=== PATIENT | female | born 1970 | race Caucasian/White ===

== ENCOUNTER → 2020-11-22 09:56 | Outpatient (BNVA) | payer BC, OTHER, SELFPAY | PROVIDERS: Visit Provider Internal Medicine | DX: M45.9 Ankylosing spondylitis of unspecified sites in spine (principal); Z11.59 Encounter for screening for other viral diseases; Z11.1 Encounter for screening for respiratory tuberculosis | CPT/HCPCS: 99203; 99204 ==

== ENCOUNTER 2020-11-22 11:38 | Outpatient (CLI) | payer BC, OTHER, SELFPAY ==
--- NOTE | 2020-11-22 11:49 | XRR_ITS ---
PROCEDURE INFORMATION: Exam: XR Left Hand Exam date and time: 11/22/2020 11:49 AM Age: 50 years old Clinical indication: Hand; Bilateral; Patient HX: Pain in unspecified joint; Additional info: M45.9 - ankylosing spondylitis of unspecified sites in spine TECHNIQUE: Imaging protocol: XR Left hand. Views: 3 or more views. COMPARISON: No relevant prior studies available. FINDINGS: Bones/joints: No fracture or other acute abnormalities are seen. Chronic degenerative changes are present especially in the triscaphe joint and 1st carpometacarpal joint with joint space narrowing, sclerosis and small osteophytes. Soft tissues: Normal. XR/XR hand LT 2V [id number] IMPRESSION: Chronic degenerative changes especially in the triscaphe and 1st carpometacarpal joints. No acute abnormalities.
--- NOTE | 2020-11-22 11:49 | XRR_ITS ---
PROCEDURE INFORMATION: Exam: XR Right Hand Exam date and time: 11/22/2020 11:49 AM Age: 50 years old Clinical indication: Hand; Bilateral; Patient HX: Pain in unspecified joint; Additional info: M45.9 - ankylosing spondylitis of unspecified sites in spine TECHNIQUE: Imaging protocol: XR Right hand. Views: 1 or 2 views. COMPARISON: No relevant prior studies available. FINDINGS: Bones/joints: Chronic degenerative changes are present especially in the triscaphe joint with narrowing sclerosis and small osteophytes. No fracture or other acute abnormalities are seen. No destructive or erosive bony changes are present. Soft tissues: Normal. 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 No acute abnormality.
--- NOTE | 2020-11-22 11:49 | XRR_ITS ---
PROCEDURE INFORMATION: Exam: XR Thoracic Spine Exam date and time: 11/22/2020 11:49 AM Age: 50 years old Clinical indication: Condition or disease; Spondylitis, ankylosing; Thoracic; Additional info: M45.9 - ankylosing spondylitis of unspecified sites in spine TECHNIQUE: Imaging protocol: XR of the thoracic spine. Views: 3 views. COMPARISON: CR XR cervical spine fl/ex [id number] 11/22/2020 11:58 AM FINDINGS: Bones/joints: There is a mild scoliosis convex to the left with the apex at the T4-5 level. No fracture or other acute abnormalities are seen. Mild DJD is present with a few small scattered osteophytes. Soft tissues: Unremarkable. XR/XR thoracic spine 3V* [id number] IMPRESSION: Mild DJD and scoliosis. No acute abnormality.
--- NOTE | 2020-11-22 11:49 | XRR_ITS ---
PROCEDURE INFORMATION: Exam: XR Cervical Spine Exam date and time: 11/22/2020 11:49 AM Age: 50 years old Clinical indication: Condition or disease; Other: Ankylosing spondylitis; Additional info: M45.9 - ankylosing spondylitis of unspecified sites in spine TECHNIQUE: Imaging protocol: XR of the cervical spine. Views: 2 or 3 views. COMPARISON: No relevant prior studies available. FINDINGS: Bones/joints: No fracture or other acute abnormalities are seen. There is no malalignment. Chronic DJD is present especially from C4 through C6 with disc space narrowing sclerosis osteophytes. There is no malalignment in flexion and extension. Range of motion appears normal. Soft tissues: Unremarkable. XR/XR cervical spine fl/ex [id number] IMPRESSION: 1. Chronic DJD especially from C4 through C6. 2. No acute abnormality or malalignment.
--- NOTE | 2020-11-22 11:49 | XRR_ITS ---
PROCEDURE INFORMATION: Exam: XR Right Foot Exam date and time: 11/22/2020 11:49 AM Age: 50 years old Clinical indication: Pain; Foot; Bilateral; Additional info: M25.50 - pain in unspecified joint TECHNIQUE: Imaging protocol: XR Right foot. Views: 1 or 2 views. COMPARISON: No relevant prior studies available. FINDINGS: Bones/joints: No fracture or other acute bone or joint abnormalities are seen. Chronic degenerative changes are present predominantly in the 1st metatarsophalangeal joint with narrowing sclerosis and small osteophytes. There is bunion on the 1st metatarsal bone. There is a 7 mm plantar calcaneal spur. Soft tissues: Normal. XR/XR foot RT 2V [id number] IMPRESSION: 1. No acute abnormality. 2. Chronic DJD predominantly in the 1st metatarsophalangeal joint with bunion and plantar calcaneal spur.
--- NOTE | 2020-11-22 11:49 | XRR_ITS ---
PROCEDURE INFORMATION: Exam: XR Left Foot Exam date and time: 11/22/2020 11:49 AM Age: 50 years old Clinical indication: Pain; Foot; Bilateral; Additional info: M25.50 - pain in unspecified joint TECHNIQUE: Imaging protocol: XR Left foot. Views: 1 or 2 views. COMPARISON: No relevant prior studies available. FINDINGS: Bones/joints: No fracture or other acute abnormalities are seen. Chronic degenerative changes are present especially in the 1st metatarsophalangeal joint with joint space narrowing sclerosis and small osteophytes. There is a bunion on the 1st metatarsal bone and a 7 mm plantar calcaneal spur. Soft tissues: Normal. XR/XR foot LT 2V [id number] IMPRESSION: 1. No acute abnormality. 2. Chronic DJD prominent in the 1st metatarsophalangeal joint with bunion and plantar calcaneal spur.
--- NOTE | 2020-11-22 11:49 | XRR_ITS ---
PROCEDURE INFORMATION: Exam: XR Bilateral Hips Exam date and time: 11/22/2020 11:49 AM Age: 50 years old Clinical indication: Condition or disease; Other: Ankylosing spondylitis; Additional info: M45.9 - ankylosing spondylitis of unspecified sites in spine TECHNIQUE: Imaging protocol: XR bilateral hips. Views: 2 views of hips with pelvis when performed. COMPARISON: CR XR lumbar spine 2-3V* [id number] 11/22/2020 12:06 PM FINDINGS: Bones/joints: Unremarkable. No acute fracture. Soft tissues: Unremarkable. XR/XR hip BI 3-4V wo/w pel [id number] IMPRESSION: No significant abnormality.
--- NOTE | 2020-11-22 11:49 | XRR_ITS ---
PROCEDURE INFORMATION: Exam: XR Lumbosacral Spine Exam date and time: 11/22/2020 11:49 AM Age: 50 years old Clinical indication: Condition or disease; Spondylitis, ankylosing; Lumbar region; Additional info: M45.9 - ankylosing spondylitis of unspecified sites in spine TECHNIQUE: Imaging protocol: XR of the lumbosacral spine. Views: 2 or 3 views. COMPARISON: No relevant prior studies available. FINDINGS: Bones/joints: No fracture or other acute abnormalities are seen. There is no malalignment. There are no significant degenerative changes in the lumbar spine. Soft tissues: Unremarkable. XR/XR lumbar spine 2-3V* [id number] IMPRESSION: No significant abnormality.
[2020-11-22 13:11] LABS: Basophils # 0.1 10^3/uL (0.0-0.1); Eosinophils # 0.1 10^3/uL (0.0-0.8); Eosinophils % 1.4 %; Hematocrit 35.9 % (37.0-47.0); Lymphocytes # 2.1 10^3/uL (0.8-4.8); Lymphocytes % 42.1 %; Mean Corpuscular HGB Conc 33.4 g/dL (30.0-36.0); Mean Corpuscular Hemoglobin 29.3 pg (28.0-34.0); Mean Corpuscular Volume 87.6 fl (81-99); Mean Platelet Volume 10.9 fL (7.4-10.4); Monocytes # 0.3 10^3/uL (0.2-0.9); Monocytes % 5.8 %; Neutrophils # 2.49 10^3/uL (1.8-7.7); Neutrophils % 49.3 %; Nucleated Red Blood Cells % 0 %; Platelet Count 229 10^3/cmm (130-400); Red Cell Distribution Width 12.7 % (12.1-15.1)
[2020-11-22 13:35] LABS: Alanine Aminotransferase 15 U/L (0-33); Albumin Level 4.7 g/dL (3.5-5.2); Alkaline Phosphatase 90 IU/L (35-105); Anion Gap 13.8 (5-19); Aspartate Amino Transferase 19 U/L (0-32); Blood Urea Nitrogen 12 mg/dL (6-20); Calcium 9.3 mg/dL (8.5-10.5); Carbon Dioxide 30 mmol/L (22-29); Chloride 103 mmol/L (98-107); Creatine Phosphokinase 91 U/L (26-192); Globulin 2.8 g/dL (1.3-4.6); Glucose 86 mg/dL (65-115); Osmolality Calculated 295 mOsm/kg (285-295); Potassium 3.8 mmol/L (3.5-5.1); Sodium 143 mmol/L (136-145); Total Bilirubin 0.2 mg/dL (0.15-1.2); Total Protein 7.5 g/dL (6.6-8.7); Urine Appearance Hazy (CLEAR); Urine Color Straw (Yellow); pH Urine 7 (5-7)
[2020-11-22 13:36] LABS: Add Urine Microscopic? YES; Bilirubin Urine Neg (Negative); Blood Urine Neg (Negative); Glucose Urine UA Norm (Normal); Ketones Urine Negative (Negative); Leukocyte Esterase Urine 1+ (Negative); Nitrate Urine Negative (Negative); Protein Urine Neg (Negative); Urobilinogen Urine Norm (Negative)
[2020-11-22 13:37] LABS: Bacteria Urine TRACE /hpf; RBC Urine 0-4 /hpf (0-2); Squamous Epithelial Cell Urine 0-4 /hpf (0-5)
[2020-11-22 13:38] LABS: Add Urine Culture? Yes
[2020-11-22 13:59] LABS: Erythrocyte Sedimentation Rate 14 mm/hr (0-15)
[2020-11-22 14:04] LABS: Hepatitis B Core AB, Total Non-Reactive (Nonreactive); Hepatitis B Surface Antigen Non-Reactive (Nonreactive); Hepatitis C Virus Antibody Non-Reactive (Nonreactive)
[2020-11-23 13:53] LABS: THYROID PEROXIDASE ANTIBODIES 382 IU/mL (<9)
[2020-11-23 14:46] LABS: CENTROMERE B ANTIBODY <1.0 NEG AI (<1.0 NEG); JO-1 ANTIBODY <1.0 NEG AI (<1.0 NEG); RNP ANTIBODY <1.0 NEG AI (<1.0 NEG); SCL-70 ANTIBODY <1.0 NEG AI (<1.0 NEG); SJOGREN'S ANTIBODY (SS-A) <1.0 NEG AI (<1.0 NEG); SM ANTIBODY <1.0 NEG AI (<1.0 NEG); SS-B <1.0 NEG AI (<1.0 NEG)
[2020-11-23 17:51] LABS: Cyclic Citrullinated Peptide <16 UNITS
[2020-11-24 10:33] LABS: HLA-B27 POSITIVE (NEGATIVE)
[2020-11-24 15:28] LABS: ANA PATTERN Nuclear, Homogeneous; ANA SCREEN, IFA POSITIVE (NEGATIVE)
[2020-11-24 16:28] LABS: Quantiferon Mitogen 8.07 IU/mL; Quantiferon Nil 0.11 IU/mL; Quantiferon Plus TB1 <0.00 IU/mL; Quantiferon Plus TB2 0.01 IU/mL; Quantiferon TB Gold NEGATIVE (NEGATIVE)
[2020-11-25 11:38] LABS: COMPLEMENT COMPONENT C3C 131 mg/dL (83-193); COMPLEMENT COMPONENT C4C 33 mg/dL (15-57)
[2020-11-25 14:51] LABS: COMPLEMENT, TOTAL (CH50) >60 U/mL (31-60)
[2020-11-26 00:58] LABS: Immunoglobulin A 173 mg/dL (47-310)
[2020-11-28 02:37] LABS: Tissue Transglutaminase IgA Ab <1 U/mL; Tissue transglutaminase Ab.IgG 1 U/mL
[2020-11-28 16:47] LABS: Gliadin Ab.IgA 2 U (<20); Gliadin Ab.IgG 1 U (<20)
[2020-12-02 10:57] LABS: DNA AB (DS) CRITHIDIA,IFA NEGATIVE (NEGATIVE)
== END 2020-11-22 11:39 | disposition home or self-care (01) ==
PROVIDERS: PCP Nurse Practitioner Family; Visit Provider Internal Medicine
DX: M45.9 Ankylosing spondylitis of unspecified sites in spine (principal); M25.50 Pain in unspecified joint; Z11.59 Encounter for screening for other viral diseases; Z11.1 Encounter for screening for respiratory tuberculosis
CPT/HCPCS: 36415; 72040; 72072; 72100; 73120; 73522; 73620; 80053; 81001; 82550; 82784; 83516; 85025; 85651; 86140; 86160; 86162; 86235; 86255; 86376; 86431; 86480; 86704; 86803; 86812; 87340